=== PATIENT | female | born 1975 | race Caucasian/White ===

== ENCOUNTER 2023-10-20 14:05 | Emergency (ER) | payer SELFPAY ==
[2023-10-20] MEDS ORDERED: Ketorolac Tromethamine 30 MG (1 mL) VIAL ONE (15:07)
[2023-10-20] MEDS ORDERED: Ipratropium/Albuterol 3 ML NEB ONE (15:07)
[2023-10-20] MEDS ORDERED: Dexamethasone 10 MG/ML VIAL ONE (15:07)
[2023-10-20 15:49] LABS: SARS-CoV-2 E Target Negative; SARS-CoV-2 N2 Target Negative; SARS-CoV-2 NAA Rapid Test Not Detected (NotDetected); SARS-CoV-2 RdRP gene Negative
== END 2023-10-20 16:20 | disposition home or self-care (01) ==
LOC: BURERS 14:05
DX: J20.9 Acute bronchitis, unspecified (principal); I10 Essential (primary) hypertension; F17.210 Nicotine dependence, cigarettes, uncomplicated
CPT/HCPCS: 71045; 96372; J1100; J1885; J7620; U0002